=== PATIENT | female | born 1990 | race African-American/Black ===

== ENCOUNTER 2023-12-26 16:48 | Outpatient (OUT) | payer OTHER, SELFPAY ==
[2023-12-26 17:11] LABS: Basophils Absolute Auto 0.1 10^3/uL (0.0-0.1); Basophils Percent Auto 0.5 % (0.2-2.0); Eosinophils Absolute Auto 0.1 10^3/uL (0.0-0.7); Eosinophils Percent Auto 0.7 % (0.9-7.0); Hematocrit 42.1 % (36.0-48.0); Hemoglobin 13.4 g/dL (12.0-16.0); Immature Granulocytes Abs Auto 0.03 10^3/uL (0.00-0.03); Immature Granulocytes Pct Auto 0.2 % (0.0-0.5); Lymphocytes Absolute Auto 2.9 10^3/uL (1.2-3.8); Lymphocytes Percent Auto 21.9 % (20.5-60.0); Mean Corpuscular HGB Conc 31.8 g/dL (29.9-35.2); Mean Corpuscular Hemoglobin 26.4 pg (26.7-34.0); Mean Platelet Volume 9.6 fL (9.5-13.5); Monocytes Absolute Auto 0.6 10^3/uL (0.3-0.8); Monocytes Percent Auto 4.8 % (1.7-12.0); Neutrophils Absolute Auto 9.5 10^3/uL (1.4-6.5); Neutrophils Percent Auto 71.9 % (43.0-75.0); Platelet Count 271 10^3/uL (150-450); Red Blood Count 5.07 10^6/uL (4.20-5.40); Red Cell Distribution Width 14.1 % (11.0-15.0); White Blood Count 13.2 10^3/uL (4.0-11.0)
[2023-12-26 17:45] LABS: Alanine Aminotransferase 18 U/L (14-59); Albumin Globulin Ratio 1.2; Albumin Level 3.6 g/dL (3.4-5.0); Alkaline Phosphatase 62 U/L (46-116); Anion Gap 11.9; BUN Creatinine Ratio 9.7; Bilirubin Total 0.5 mg/dL (0.2-1.0); Calcium 9.4 mg/dL (8.5-10.1); Carbon Dioxide 28.1 mmol/L (21.0-32.0); Chloride 102 mmol/L (98-107); Chol HDL Ratio 2.5; Cholesterol 157 mg/dL (<=200); Estimated GFR (African America >60 (>=60); Estimated GFR (Non-African Ame >60 (>=60); Free T3 2.55 pg/mL (2.18-3.98); Glucose 86 mg/dL (74-106); HDL Cholesterol 63 mg/dL (40-60); Sodium 138 mmol/L (136-145); Thyroid Stimulating Hormone 0.695 uIU/mL (0.358-3.740); Total Protein 6.6 g/dL (6.4-8.2); Triglycerides 61 mg/dL (<=150); VLDL CHOLESTEROL 12.2 mg/dL
[2023-12-26 18:11] LABS: Aspartate Amino Transferase 20 U/L (15-37)
[2023-12-26 18:15] LABS: Estimated Average Glucose 111 mg/dL; Glycohemoglobin A1C 5.5 % (4.5-6.2)
[2023-12-28 10:10] LABS: Insulin 9.2 uIU/mL (2.6-24.9)
== END 2023-12-26 16:49 | disposition home or self-care (01) ==
LOC: LAB 16:54
PROVIDERS: PCP Family Medicine; Visit Provider Family Medicine
DX: Z00.00 Encounter for general adult medical examination without abnormal findings (principal); E78.5 Hyperlipidemia, unspecified; R73.9 Hyperglycemia, unspecified; D64.9 Anemia, unspecified
CPT/HCPCS: 36415; 80053; 80061; 83036; 83525; 83540; 84436; 84443; 84481; 85025

== ENCOUNTER 2024-07-19 16:16 | Outpatient (OUT) | payer OTHER, SELFPAY ==
[2024-07-19 16:51] LABS: Basophils Absolute Auto 0.1 10^3/uL (0.0-0.1); Basophils Percent Auto 0.4 % (0.2-2.0); Eosinophils Absolute Auto 0.2 10^3/uL (0.0-0.7); Eosinophils Percent Auto 2.1 % (0.9-7.0); Hematocrit 40.3 % (36.0-48.0); Hemoglobin 13.1 g/dL (12.0-16.0); Immature Granulocytes Abs Auto 0.02 10^3/uL (0.00-0.03); Immature Granulocytes Pct Auto 0.2 % (0.0-0.5); Lymphocytes Absolute Auto 2.8 10^3/uL (1.2-3.8); Lymphocytes Percent Auto 24.5 % (20.5-60.0); Mean Corpuscular HGB Conc 32.5 g/dL (29.9-35.2); Mean Corpuscular Hemoglobin 27.3 pg (26.7-34.0); Mean Corpuscular Volume 84.1 fL (81.0-99.0); Mean Platelet Volume 9.5 fL (9.5-13.5); Monocytes Absolute Auto 0.7 10^3/uL (0.3-0.8); Monocytes Percent Auto 6.4 % (1.7-12.0); Neutrophils Absolute Auto 7.6 10^3/uL (1.4-6.5); Neutrophils Percent Auto 66.4 % (43.0-75.0); Platelet Count 328 10^3/uL (150-450); Red Blood Count 4.79 10^6/uL (4.20-5.40); Red Cell Distribution Width 14.6 % (11.0-15.0); White Blood Count 11.4 10^3/uL (4.0-11.0)
[2024-07-19 17:24] LABS: Estimated Average Glucose 108 mg/dL; Glycohemoglobin A1C 5.4 % (4.5-6.2)
[2024-07-19 17:42] LABS: Alanine Aminotransferase 18 U/L (14-59); Albumin Globulin Ratio 0.9; Albumin Level 3.2 g/dL (3.4-5.0); Alkaline Phosphatase 67 U/L (46-116); Anion Gap 12.9; Aspartate Amino Transferase 18 U/L (15-37); BUN Creatinine Ratio 8.2; Bilirubin Total 0.5 mg/dL (0.2-1.0); Calcium 9.4 mg/dL (8.5-10.1); Carbon Dioxide 25.7 mmol/L (21.0-32.0); Chloride 104 mmol/L (98-107); Chol HDL Ratio 2.8; Cholesterol 174 mg/dL (<=200); Estimated GFR (African America >60 (>=60 mL/min/1.73m^2); Estimated GFR (Non-African Ame >60 (>=60 mL/min/1.73m^2); Free T3 2.57 pg/mL (2.18-3.98); Globulin 3.6 g/dL; Glucose 85 mg/dL (74-106); HDL Cholesterol 63 mg/dL (40-60); Potassium 3.6 mmol/L (3.5-5.1); Sodium 139 mmol/L (136-145); Thyroid Stimulating Hormone 0.573 uIU/mL (0.358-3.740); Total Protein 6.8 g/dL (6.4-8.2); Triglycerides 54 mg/dL (<=150); VLDL CHOLESTEROL 10.8 mg/dL
[2024-07-21 13:08] LABS: Insulin 5.6 uIU/mL (2.6-24.9)
== END 2024-07-19 16:17 | disposition home or self-care (01) ==
LOC: LAB 16:21
PROVIDERS: PCP Family Medicine; Visit Provider Family Medicine
DX: M17.12 Unilateral primary osteoarthritis, left knee (principal); R53.83 Other fatigue; K21.9 Gastro-esophageal reflux disease without esophagitis; K59.00 Constipation, unspecified; E78.5 Hyperlipidemia, unspecified; R73.09 Other abnormal glucose; I10 Essential (primary) hypertension; E03.9 Hypothyroidism, unspecified
CPT/HCPCS: 36415; 80053; 80061; 83036; 83525; 84436; 84443; 84481; 85025